=== PATIENT | male | born 1970 | race Hispanic/Latino ===

== ENCOUNTER 2023-08-11 08:56 | Outpatient (CLI) | payer OTHER | END 2023-08-11 08:57 | disposition home or self-care (01) | LOC: BICULT 08:56 | PROVIDERS: ATTEND Internal Medicine Gastroenterology | DX: K64.9 Unspecified hemorrhoids (principal); R10.10 Upper abdominal pain, unspecified; K43.9 Ventral hernia without obstruction or gangrene; Z86.010 Personal history of colon polyps | CPT/HCPCS: 76705 ==

== ENCOUNTER 2023-08-28 09:06 | Outpatient (CLI) | payer OTHER ==
[2023-08-28 11:13] LABS: #Basophils 0.08 10x3/uL (0.0-0.2); #Monocytes 0.54 10x3/uL (0.0-1.1); %Basophils 1.3 % (0.0-2.0); %Eosinophils 3.3 % (0.0-6.0); %Lymphocytes 35.8 % (18.0-47.0); %Monocytes 8.8 % (0.0-10.0); %Neutrophils 50.6 % (40.0-75.0); Hematocrit 46.2 % (38.8-50.0); Hemoglobin 15.5 g/dL (13.5-17.5); Mean Corpuscular HGB CONC 33.5 g/dL (32.0-36.0); Mean Corpuscular Volume 92.4 fL (81.2-95.1); Mean Platelet Volume 10.1 fL (7.4-10.4); Platelet Count 218 10x3/uL (150-450); RBC Distribution Width 12.4 % (11.5-14.5); White Blood Cell (WBC) Count 6.1 10x3/uL (3.5-10.5)
[2023-08-28 11:50] LABS: ALT (SGPT) 17 U/L (8-55); AST (SGOT) 17 U/L (5-34); Albumin 4.1 g/dL (3.5-5.0); Alkaline Phosphatase 57 U/L (40-110); Anion Gap 11 mmol/L (10-20); BUN (Urea Nitrogen) 18 mg/dL (8.4-25.7); Bilirubin, Total 0.5 mg/dL (0.2-1.2); Calc. Creatinine Clearance 0 mL/min (70-130); Calcium 9.3 mg/dL (7.8-10.44); Carbon Dioxide 27 mmol/L (22-29); Chloride 106 mmol/L (98-107); Estimated GFR 80; Globulin 2.8 g/dL (2.4-3.5); Glucose 101 mg/dL (70-105); Potassium 4.4 mmol/L (3.5-5.1); Protein, Total 6.9 g/dL (6.0-8.3); Sodium 140 mmol/L (136-145)
== END 2023-08-28 09:07 | disposition home or self-care (01) ==
LOC: LABBT 09:06
PROVIDERS: ATTEND Surgery
DX: Z01.818 Encounter for other preprocedural examination (principal); K43.9 Ventral hernia without obstruction or gangrene
CPT/HCPCS: 80053; 85025; 93005; 93010

== ENCOUNTER 2023-08-31 05:40 | Day surgery (SDC) | payer OTHER ==
[2023-08-26 14:56] VITALS: BMI 27.9
[2023-08-31] MEDS ORDERED: Bupivacaine 0.25% HCL 30 ML VIAL ONE (06:40)
[2023-08-31] MEDS ORDERED: EPINEPHrine 1 MG/ML VIAL ONE (06:40)
[2023-08-31] MEDS ORDERED: Ondansetron PF 4 MG/2 ML Vial ONE (06:46)
[2023-08-31] MEDS ORDERED: PROPOFOL 40 ML ONE (06:46)
[2023-08-31] MEDS ORDERED: fentaNYL PF 100 MCG/2 ML SYRINGE ONE (06:46)
[2023-08-31] MEDS ORDERED: SUGAMMADEX SODIUM 200 MG/2 ML VIAL ONE (06:46)
[2023-08-31] MEDS ORDERED: Rocuronium Bromide 10 MG/ML (10ML VIAL) ONE (06:46)
[2023-08-31] MEDS ORDERED: Dexamethasone 4 mg/ml Vial ONE (06:46)
[2023-08-31] MEDS ORDERED: Lidocaine 1% PF 5 ML VIAL ONE (06:46)
[2023-08-31] MEDS ORDERED: Midazolam HCl 2 mg/2 ml Vial ONE (07:18)
[2023-08-31] MEDS ORDERED: Sodium Chloride 0.9% 100 ML ONE (07:19)
[2023-08-31] MEDS ORDERED: CEFAZOLIN 2 GM VIAL ONE (07:19)
[2023-08-31] MEDS ORDERED: ePHEDrine Sulfate 50 MG/10 ML VIAL ONE (07:42)
[2023-08-31] MEDS ORDERED: Ketorolac Tromethamine 30 MG (1 mL) VIAL ONE (08:16)
[2023-08-31] MEDS ORDERED: Fentanyl 250 MCG/5 ML VIAL ONE (08:34)
[2023-08-31] MEDS ORDERED: Promethazine HCl 25 MG/ML VIAL ONE (08:48)
[2023-08-31] MEDS ORDERED: HYDROmorphone 0.5 MG/0.5 ML SYRINGE ONE (08:55)
[2023-08-31] MEDS ORDERED: HYDROcodone/Acetaminophen 5/325 mg Tablet ONE (09:52)
== END 2023-08-31 11:04 | disposition home or self-care (01) ==
LOC: SDC 05:40
PROVIDERS: ATTEND Surgery
PROC: 0WUF4JZ Supplement Abdominal Wall with Synthetic Substitute, Percutaneous Endoscopic Approach (ICD-10-PCS; principal; 2023-08-31)
DX: K43.9 Ventral hernia without obstruction or gangrene (principal); E78.5 Hyperlipidemia, unspecified; N52.9 Male erectile dysfunction, unspecified; Z98.52 Vasectomy status; Z79.899 Other long term (current) drug therapy
CPT/HCPCS: C1781; J0171; J0665; J1100; J1170; J1885; J2250; J2405; J2550; J2704; J3010; J3490

== ENCOUNTER 2024-12-26 14:25 | Inpatient (IN) | payer OTHER ==
[~2024-12-26 14:25] MED LIST: Iopamidol-370 76% 500 ML MDV (1 ML CHARGE) ONE
[2024-12-26 15:49] LABS: #Basophils 0.07 10x3/uL (0.0-0.2); #Eosinophils 0.15 10x3/uL (0.0-0.7); #Monocytes 0.88 10x3/uL (0.11-0.59); #Neutrophils 6.81 10x3/uL (1.40-6.50); %Basophils 0.7 % (0.0-1.0); %Eosinophils 1.6 % (0.0-10.0); %Lymphocytes 17.4 % (21.0-51.0); %Monocytes 9.1 % (0.0-10.0); %Neutrophils 70.8 % (42.0-75.0); Hematocrit 46.6 % (42.0-52.0); Hemoglobin 15.9 g/dL (14.0-18.0); Mean Corpuscular Hemoglobin 30.5 pg (27.0-31.0); Mean Corpuscular Volume 89.4 fL (78.0-98.0); Platelet Count 222 10x3/uL (130-400); Red Blood Cell (RBC) Count 5.21 mill/uL (4.70-6.10); White Blood Cell (WBC) Count 9.62 10x3/uL (4.8-10.8)
[2024-12-26] MEDS ORDERED: Aspirin Chewable 81 MG TAB ONE (16:13)
[2024-12-26] MEDS ORDERED: Nitroglycerin 0.4 MG TAB 1 EACH ONE (16:15)
[2024-12-26 16:16] LABS: ALT (SGPT) 16 U/L (Less than 45); AST (SGOT) 23 U/L (11-34); Albumin 3.9 g/dL (3.1-4.5); Alkaline Phosphatase 94 U/L (40-110); Anion Gap 15 mmol/L (10-20); BUN (Urea Nitrogen) 14 mg/dL (8.4-25.7); Bilirubin, Total 0.5 mg/dL (0.3-1.2); Calc. Creatinine Clearance 0 mL/min (70-130); Calcium 9.2 mg/dL (7.8-10.44); Carbon Dioxide 22 mmol/L (22-29); Chloride 107 mmol/L (98-107); Globulin 3.2 g/dL (2.4-3.5); Glucose 134 mg/dL (70-105); Potassium 4.2 mmol/L (3.5-5.1); Sodium 140 mmol/L (136-145)
[2024-12-26] MEDS ORDERED: Enoxaparin 100 MG (1 mL) SYRINGE ONE (19:15)
[2024-12-26 19:55] LABS: INR-International Normal Ratio 1.1; Prothrombin Time 13.8 sec (12.0-14.7)
[2024-12-26 19:56] LABS: PTT 34.4 sec (22.9-36.1)
[2024-12-26] MEDS ORDERED: Acetaminophen 325 MG TAB PO PRN (22:00)
[2024-12-26] MEDS ORDERED: Ondansetron PF 4 MG/2 ML Vial IVP PRN ×2 (22:00→23:17)
[2024-12-26 22:50] VITALS: BMI 28.8
[2024-12-26] MEDS ORDERED: Calcium Carbonate 500 MG ChewTAB PO PRN (23:17)
[2024-12-26] MEDS ORDERED: Magnesium 2 GM/50 ML(in water) 2 GM in Premix 1 BAG IVPB PRN (23:30)
[2024-12-26] MEDS ORDERED: PHOS-NAK 1 PKT PACK PO PRN (23:30)
[2024-12-26] MEDS ORDERED: Electrolyte Replacement Protocol 1 EACH FS SCH (23:30)
[2024-12-26] MEDS ORDERED: Potassium Chloride 20 MEQ in Premix 1 BAG IVPB PRN (23:30)
[2024-12-26] MEDS: Ketorolac Tromethamine 30 MG (1 mL) VIAL IVP PRN (23:33)
[2024-12-27 05:21] LABS: #Basophils 0.08 10x3/uL (0.0-0.2); #Eosinophils 0.35 10x3/uL (0.0-0.7); #Monocytes 0.93 10x3/uL (0.11-0.59); #Neutrophils 3.82 10x3/uL (1.40-6.50); %Basophils 1.0 % (0.0-1.0); %Eosinophils 4.4 % (0.0-10.0); %Lymphocytes 34.0 % (21.0-51.0); %Monocytes 11.8 % (0.0-10.0); %Neutrophils 48.4 % (42.0-75.0); Hematocrit 44.5 % (42.0-52.0); Hemoglobin 14.4 g/dL (14.0-18.0); Mean Corpuscular Hemoglobin 30.1 pg (27.0-31.0); Mean Corpuscular Volume 92.9 fL (78.0-98.0); Platelet Count 236 10x3/uL (130-400); Red Blood Cell (RBC) Count 4.79 mill/uL (4.70-6.10); White Blood Cell (WBC) Count 7.89 10x3/uL (4.8-10.8)
[2024-12-27 05:39] LABS: ALT (SGPT) 15 U/L (Less than 45); AST (SGOT) 17 U/L (11-34); Albumin 3.4 g/dL (3.1-4.5); Alkaline Phosphatase 82 U/L (40-110); Anion Gap 13 mmol/L (10-20); BUN (Urea Nitrogen) 13 mg/dL (8.4-25.7); Bilirubin, Total 0.5 mg/dL (0.3-1.2); Calc. Creatinine Clearance 110 mL/min (70-130); Calcium 8.8 mg/dL (7.8-10.44); Carbon Dioxide 23 mmol/L (22-29); Chloride 109 mmol/L (98-107); Globulin 2.9 g/dL (2.4-3.5); Glucose 97 mg/dL (70-105); Potassium 4.0 mmol/L (3.5-5.1); Sodium 141 mmol/L (136-145)
[2024-12-27] MEDS: Apixaban 5 MG TAB PO SCH ×3 (08:10→19:53)
[2024-12-28] MEDS ORDERED: Acetaminophen 325 MG TAB PO PRN (07:46)
[2024-12-28 10:22] VITALS: BP 102/63; TEMP 98.2
[2025-01-03] MEDS ORDERED: Apixaban 5 MG TAB PO SCH (09:00)
== END 2024-12-28 10:29 | disposition home or self-care (01) | DRG 176 ==
LOC: ERS 14:25 → T4-A 21:29
PROVIDERS: ADMIT Student in an Organized Health Care Education/Training Program; ATTEND Student in an Organized Health Care Education/Training Program
DX: I26.99 Other pulmonary embolism without acute cor pulmonale (principal); J98.4 Other disorders of lung; E78.5 Hyperlipidemia, unspecified; Z79.899 Other long term (current) drug therapy
CPT/HCPCS: 36415; 71045; 71275; 80053; 83880; 84484; 85025; 85610; 85730; 93005; 93970; 94760; 96372; J1650; J1885; Q9967